=== PATIENT | male | born 1990 | race Caucasian/White ===

== ENCOUNTER 2019-03-07 19:53 | Emergency (ER) | payer BC ==
[~2019-03-07] VITALS: Ht 172.7 cm; Wt 67.8 kg
[2019-03-07 20:06] VITALS: BP 148/100
--- NOTE | 2019-03-07 20:10 | NUR ---
PT TAKEN TO BED 3
--- NOTE | 2019-03-07 20:20 | NUR ---
PT BIB SELF C/O OF RIGHT TESTICLE PAIN. PT STATES PAIN STARTED 1 WEEK AGO DURING INTERCOURSE, PAIN SUBSIDED AFTER A COUPLE DAYS; PAIN RE-STARTED LAST NIGHT DURING INTERCOURSE; STATES THIS HAPPENED BEFORE X1 YEAR AGO AND PAIN WENT AWAY ON ITS ON. STATES 10/10 PAIN W/ MOVEMENT THAT RADIATES TO RLQ. DENIES DYSURIA OR HEMATURIA. PT STATES HE DID CRYSTAL METH X1.5 HR AGO, STATES "I DID IT TO STOP THINKING ABOUT IT". PT STATES NAUSEA W/ PAIN, W/O VOMITING. --REDNESS AND SWELLING TO RIGHT TESTICLE, TENDER AND WARM TO TOUCH; +TENDERNESS TO RLQ W/ PALP. ACTIVE BOWEL SOUNDS. PT ACTING APPROPRIATLY, SPEAKING IN CLEAR AND COMPLETE SENTENCES. 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 SAFETY PRECAUTIONS IN PLACE. PENDING YOLI AVENDANO. WILL CONTINUE TO MONITOR. PMH: ASTHMA, DRUG USE
--- NOTE | 2019-03-07 20:53 | NUR ---
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 PT POSITIONED FOR COMFORT AND PRIVACY.
[2019-03-07] MEDS ORDERED: metroNIDAZOLE 500 MG TAB PO ONE (20:55)
[2019-03-07] MEDS ORDERED: cefTRIAXone 250 MG in LIDOCAINE MPF 1% - 5 mL VIAL 0.9 ML IM ONE (20:55)
[2019-03-07] MEDS ORDERED: KETOROLAC 60 MG/2 ML VIAL IM ONE (20:55)
[2019-03-07] MEDS ORDERED: AZITHROMYCIN 250 MG TAB PO ONE (20:55)
--- NOTE | 2019-03-07 21:22 | NUR ---
Ultrasound at bedside.
--- NOTE | 2019-03-07 21:27 | NUR ---
MEDICATION ADMINISTERED, PT TOLERATED WELL.
[2019-03-07] MEDS ORDERED: HYDROcodone/APAP 5/325 MG 1 TAB TAB PO ONE (22:00)
--- NOTE | 2019-03-07 22:09 | NUR ---
PT STATES 9/10 PAIN W/ MOVEMENT. MEDICATION ADMINISTERED AT THIS TIME.
[2019-03-07 22:32] LABS: APPEARANCE,URINE CLOUDY (CLEAR); BILIRUBIN,URINE NEGATIVE (NEGATIVE); BLOOD, URINE 1+ (NEGATIVE); COLOR,URINE YELLOW (YELLOW); LEUKOCYTE ESTERASE ,URINE 1+ (NEGATIVE); NITRITE, URINE NEGATIVE (NEGATIVE); UGLUCOSE NEGATIVE (NEGATIVE)
--- NOTE | 2019-03-07 22:33 | NUR ---
PT ACTING APPROPRIALTY, NO SIGNS OF DISTRESS AT THIS TIME. STATES PAIN HAS DECREASED TO 5/10 AND STATES HE IS FEELING BETTER.
[2019-03-07 23:22] LABS: RBC,URINE TOO NUMEROUS TO COUN /HPF (0-5); WBC,URINE TOO MANY TO COUNT /HPF (0-5)
--- NOTE | 2019-03-07 23:24 | NUR ---
Patient discharged with v/s stable. Patient acting appropriatly, states his pain has decreased and is feeling better. Written and verbal after care instructions given and explained. Patient alert, oriented and verbalized understanding of instructions. Ambulatory with steady gait. All questions addressed prior to discharge. ID band removed. Patient advised to follow up with PMD in one week. Rx of Doxycycline, Truvada, and Dolutegravir given. Patient educated on indication of medication including possible reaction and side effects. Opportunity to ask questions provided and answered.
[2019-03-07 23:28] VITALS: BP 116/71
[2019-03-10 06:12] LABS: CHLAMYDIA TRACHOMATIS AMP DNA Negative (Negative)
== END 2019-03-07 23:24 | disposition home or self-care (01) ==
LOC: MED 19:53
DX: N50.89 Other specified disorders of the male genital organs (principal); J45.909 Unspecified asthma, uncomplicated
CPT/HCPCS: 36415; 76870; 81001; 86703; 87086; 87491; 96372; 99284; J0696; J1885; J2001; Q0092